=== PATIENT | female | born 1965 | race Caucasian/White ===

== ENCOUNTER 2020-06-30 12:48 | Outpatient (CLI) | payer BC, SELFPAY ==
[2020-07-03 15:30] LABS: Quantiferon Mitogen >10.00 IU/mL; Quantiferon Nil 0.05 IU/mL; Quantiferon Plus TB1 0.02 IU/mL; Quantiferon Plus TB2 0.04 IU/mL; Quantiferon TB Gold NEGATIVE (NEGATIVE)
== END 2020-06-30 12:49 | disposition home or self-care (01) ==
LOC: LAB 12:59
PROVIDERS: PCP Internal Medicine; Visit Provider Internal Medicine
DX: L40.50 Arthropathic psoriasis, unspecified (principal); Z79.899 Other long term (current) drug therapy
CPT/HCPCS: 36415; 86480

== ENCOUNTER 2020-12-19 13:35 | Outpatient (CLI) | payer OTHER, SELFPAY ==
--- NOTE | 2020-12-19 13:46 | MM_ITS ---
WS: [id number] SCREENING DIGITAL MAMMOGRAM WITH CAD HISTORY: SCREENING COMPARISON: 09/14/2019, 03/15/2019, 02/17/2019 and 02/06/2018 Bilateral CC and MLO views submitted. Computer aided detection analyzed. Breast composition: There are scattered areas of fibroglandular density. There are 2 nodules within t he LEFT breast which need further evaluation. Prior ultrasound from 03/15/2019 is reviewed from [facility] which had recommended follow-up 6 month evaluation. 9 mm mass near 2:00 at a middle depth. There is an additional asymmetry measuring 7 mm medial to the LEFT nipple on the CC projection. MM/[place] [id number] IMPRESSION: BI-RADS: 0-Incomplete: Need additional imaging evaluation FOLLOW UP: Need Additional Imaging LEFT breast: Spot compression views (CC and MLO). True ML. Ultrasound to follow if abnormality persists.
== END 2020-12-19 13:36 | disposition home or self-care (01) ==
LOC: RADSHAW 13:41
PROVIDERS: PCP Internal Medicine; Visit Provider Nurse Practitioner Family
DX: Z12.31 Encounter for screening mammogram for malignant neoplasm of breast (principal)
CPT/HCPCS: 77067

== ENCOUNTER 2021-01-05 08:27 | Outpatient (CLI) | payer OTHER, SELFPAY ==
--- NOTE | 2021-01-05 08:31 | US_ITS ---
WS: [id number] ADDITIONAL VIEWS LEFT MAMMOGRAM LEFT BREAST ULTRASOUND HISTORY: LT ABNORMAL MAMMOGRAM COMPARISON: 12/19/2020, 09/14/2019, 02/06/2018, 03/27/2015 and 09/26/2010 LEFT MAMMOGRAM: Spot compression views and true ML. Slightly lobulated mass in the middle upper outer quadrant of the LEFT breast near 2:00 persists. Thi s is of slightly increased density. This mass has been described on prior studies but is slowly incre asing in size. There is an additional asymmetry more anterior which is stable. Just medial to the nip ple is an additional asymmetry which may be normal fibroglandular density. LEFT BREAST ULTRASOUND 2-D and color Doppler imaging submitted. Ultrasound at 2:00, 1 cm from the nipple demonstrates a hypoechoic nodule measuring 9 x 6 x 9 mm. Thi s may represent the mammographic nodule. The mammographic nodule is slightly more rounded. There is a n additional hypoechoic area at 10:00, 1 cm from the nipple measuring 6 x 3 x 5 mm. This may be a com plex cyst. US/US breast LT limited* [id number] IMPRESSION: BI-RADS: 4-Suspicious Finding-Biopsy Should Be Considered FOLLOW UP: Biopsy Recommended Ultrasound-guided biopsy recommended of the slowly increasing LEFT breast mass at 2:00. If this mass cannot be correlated by ultrasound as the same mass by ma mmography stereotactic biopsy should then be performed. Additional 6 month diagnostic mammogram of the LEFT breast should then be perfo rmed as there are some additional asymmetries which are probably normal fibrogl andular asymmetries.
== END 2021-01-05 08:28 | disposition home or self-care (01) ==
LOC: RADSHAW 08:29
PROVIDERS: PCP Internal Medicine; Visit Provider Nurse Practitioner Family
DX: R92.8 Other abnormal and inconclusive findings on diagnostic imaging of breast (principal); N63.21 Unspecified lump in the left breast, upper outer quadrant
CPT/HCPCS: 76642; 77065

== ENCOUNTER 2021-01-30 12:09 | Outpatient (CLI) | payer OTHER, SELFPAY ==
--- NOTE | 2021-01-30 12:15 | US_ITS ---
WS: [id number] ULTRASOUND LEFT BREAST HISTORY: LEFT ABNORMAL MAMMOGRAM COMPARISON: 01/05/2021 and 03/15/2019 TECHNIQUE: 2-D and Doppler. Patient presents for LEFT breast biopsy of the complex cystic nodule at 2:00. On the ultrasound evalu ation this nodule appears more cystic than on prior studies. There are numerous additional similar cy stic nodules with septations or cluster of cysts within the LEFT breast. Additional cyst at 4:00. Due to the multiplicity and the very benign appearance no biopsy will be performed today. Discussed with patient the option of biopsy versus following up in 6 months and she is elected to fol low up in 6 months by ultrasound. US/US breast LT limited* [id number] IMPRESSION: BI-RADS: 3-Probably Benign FOLLOW-UP: 6 Month Follow-up Recommend follow-up ultrasound in 6 months of the LEFT breast to reevaluate the cystic masses at 2:00 and 4:00. These lesions appeared very benign on today's ultrasound evaluation therefore biopsy was not performed.
== END 2021-01-30 12:10 | disposition home or self-care (01) ==
PROVIDERS: PCP Internal Medicine; Visit Provider Nurse Practitioner Family
DX: R92.8 Other abnormal and inconclusive findings on diagnostic imaging of breast (principal); N63.21 Unspecified lump in the left breast, upper outer quadrant
CPT/HCPCS: 76642

== ENCOUNTER → 2021-03-22 15:11 | Outpatient (BNVA) | payer OTHER, SELFPAY | PROVIDERS: PCP Internal Medicine; Visit Provider Surgery | DX: Z20.822 Contact with and (suspected) exposure to COVID-19 (principal); Z12.11 Encounter for screening for malignant neoplasm of colon | CPT/HCPCS: 87635 ==

== ENCOUNTER 2021-03-27 06:50 | Day surgery (SDC) | payer OTHER, SELFPAY ==
[2021-03-26 13:55] VITALS: BMI 29.7
[2021-03-27 07:10] VITALS: BP 127/97; PULSE 85; RESP 16; TEMP 36.6; O2SAT 97
[2021-03-27] MEDS: sodium chloride 0.9% 1,000 ML 30 ML IV (07:17)
--- NOTE | 2021-03-27 07:42 | ANES.PREANE2 ---
Pre-Anesthetic Assessment Pre-Anesthetic Assessment: Height/Weight: Height 1.68 m Weight 83.461 kg Temp Pulse Resp BP Pulse Ox 97.9 F 85 16 127/97 97 03/27/21 07:10 03/27/21 07:10 03/27/21 07:10 03/27/21 07:10 03/27/21 07:10 Preop Diagnosis: Screening colonoscopy Proposed Procedure: Operation Date: 03/27/21 07:30 Proposed Procedures p Colonoscopy 22656 Z12.11(Not Applicable) - Juan Miguel Hill MD Was Beta Mya taken within 24 hours: N/A Was Clonidine taken within 24 hours: N/A Last intake: Intake Last Liquid Date 03/26/21 Last Liquid Time 22:00 Last Solid Date 03/25/21 Last Intake: 22:00 Social: Social History: No alcohol and No tobacco Exam: Pre-Anes Outpt Exam: alert, oriented x 3, clear to auscultation bilaterally and regular rate & rhythm Airway: Submandibular: WNL Cervical ROM: WNL MP: 2 Dentition: Full Pulmonary: Pulmonary: None reported CV/HEM: CV/HEM: HTN : : None reported Hepatic: Hepatic: None reported GI: GI: GERD Musc/skel: Musc/skel: Fibromyalgia, Lower Back Pain, OA/DJD, RA and Weakness (r side weakness and sensation) Neuropsych: Neuropsych: Anxiety, Depression and None reported Anesthetic Plan: ASA status: 2 Anesthesia: MAC Risk of > 500 ml blood loss (7ml/kg in children): No Meds/Allergies Current Medications: Current Medications Generic Name Dose Route Start Last Admin Trade Name Freq PRN Reason Stop Dose Admin Sodium Chloride 1,000 mls @ 30 ml s/hr 03/27/21 07:00 03/27/21 07:17 Sodium Chloride 0.9% IV 30 mls/hr .Q24H CHANG Administration Data Anesthesia Cardiac Studies: No Data to Display
--- NOTE | 2021-03-27 07:47 | P.HP_ITS ---
Same Day Surgery H&P Indication for Procedure/HPI DATE OF PROCEDURE: March 27, 2021 CHIEF COMPLAINT/INDICATIONFOR SURGICAL PROCEDURE: Screening colonoscopy PREOP DIAGNOSIS: Screening colonoscopy PLANNED PROCEDRUE: Operation Date: 03/27/21 07:30 Proposed Procedures p Colonoscopy 62531 Z12.11(Not Applicable) - Juan Miguel Hill MD This is a pleasant 56 years old female patient never had a colonoscopy before and she reports that her father had colon cancer at age of 50. Also her brother had history of colon polyps. She denies bleeding per rectum or nonintentional weight loss. [place]. Patient reports history of chronic psoriasis associated with psoriatic arthritis. ROS All systems have been reviewed negative except as per the above Medications/Allergies* Home Medications Medication Instructions Recorded Confirmed Type CBD Oil 1 drp PO PRN 02/26/21 03/26/21 History clobetasol 0.05 % topical cream 1 applic TOPICAL DAILY 02/26/21 03/26/21 History cyclosporine 100 mg capsule 200 mg PO DAILY cap 02/26/21 03/26/21 History duloxetine 60 mg capsule,delayed 60 mg PO DAILY 02/26/21 03/26/21 History release lisinopril 20 mg tablet 20 mg PO DAILY 02/26/21 03/26/21 History meloxicam 15 mg tablet 15 mg PO DAILY 02/26/21 03/26/21 History neomycin 3.5 mg/g-polymyxin B 1 applic OPHTHALMIC (EYE) QID 02/26/21 03/26/21 History 10,000 unit/g-dexameth 0.1 % eye oint omeprazole 20 mg capsule,delayed 20 mg PO DAILY 02/26/21 03/26/21 History release triamcinolone acetonide 0.025 % 1 applic TOPICAL DAILY 02/26/21 03/26/21 History topical cream Allergies/Adverse Reactions Allergy/AdvReac Type Severity Reaction Status Date / Time azithromycin Allergy Unknown Verified 03/27/21 07:48 cephalexin Allergy Unknown Verified 03/27/21 07:48 gabapentin Allergy Unknown Verified 03/27/21 07:48 Penicillins Allergy Unknown Verified 03/27/21 07:48 Current Medications: Generic Name Dose Route Start Last Admin Trade Name Freq PRN Reason Stop Dose Admin Sodium Chloride 1,000 mls @ 30 mls/hr 03/27/21 07:00 03/27/21 07:17 Sodium Chloride 0.9% IV 30 mls/hr .Q24H CHANG Administration Pertinent Exam Findings alert, oriented x 3, clear to auscultation bilaterally, regular rate & rhythm and procedure specific exam findings (Abdominal examination nontender nondistended soft) Recommendations Surgery/Procedure today (Colonoscopy possible biopsy and possible polypectomy) Other Plans: Plan of care; After thorough history and physical examination and reviewing the chart, plan to perform screening colonoscopy. I discussed with the patient in details the risks,benefits,alternatives and indications.The risk of aspiration, bleeding, soft tissue injury, perforation of the colon and other potential concomitant complications were explained to the patient in details,also the potential need for Laproscoy/Laparotomy to repair any related complications including but not limited to colectomy and or Closotomy.The patient understood this well and did agree to proceed. Rationale was carefully and clearly discussed with the patient.Appropriate informed consent have been reviewed and signed All questions have been answered and all concerns have been addressed to patient's satisfaction. Verbal and written Instructions were given to the patient for colonoscopy prep Coding Level of Care Code Acute Cloth Laminating Supervisor for Marcus Barraza
[2021-03-27 08:10] VITALS: BP 117/74; PULSE 75; RESP 18; TEMP 36.1; O2SAT 97
--- NOTE | 2021-03-27 08:13 | ANE.PACU2 ---
Inpatient post-anesthesia follow up: Airway intact: Yes Vital signs: Temperature 97.9 F Pulse Rate 85 Respiratory Rate 16 Blood Pressure 127/97 Pulse Oximetry 97 Oxygen Delivery Me thod Room Air Oxygen Flow Rate Fraction of Inspir ed Oxygen Hydration adequate: Yes Nausea and vomiting: No Pain level: 1 Mental status: Baseline
[2021-03-27 08:34] VITALS: BP 126/88; PULSE 71; RESP 18; O2SAT 97
--- NOTE | 2021-03-27 14:14 | ANE.PACU2 ---
Inpatient post-anesthesia follow up: Airway intact: Yes Vital signs: Temperature 97 F Pulse Rate 71 Respiratory Rate 18 Blood Pressure 126/88 Pulse Oximetry 97 Oxygen Delivery Me thod Room Air Oxygen Flow Rate Fraction of Inspir ed Oxygen Hydration adequate: Yes Nausea and vomiting: No Pain level: 1 Mental status: Baseline
== END 2021-03-27 08:50 | disposition home or self-care (01) ==
PROVIDERS: PCP Internal Medicine; Visit Provider Surgery
PROC: 0DJD8ZZ Inspection of Lower Intestinal Tract, Via Natural or Artificial Opening Endoscopic (ICD-10-PCS; CPT 45378; principal; 2021-03-27 07:30)
DX: Z12.11 Encounter for screening for malignant neoplasm of colon (principal); Z80.0 Family history of malignant neoplasm of digestive organs; I10 Essential (primary) hypertension; K21.9 Gastro-esophageal reflux disease without esophagitis; M79.7 Fibromyalgia; M19.90 Unspecified osteoarthritis, unspecified site
CPT/HCPCS: 45378; 96360; J2704; J7030

== ENCOUNTER 2021-09-10 15:06 | Outpatient (CLI) | payer OTHER, SELFPAY ==
--- NOTE | 2021-09-10 15:14 | USCV_ITS ---
Danielle Stack Age: 56 Gender: F : 1965 Exam Date: 09/10/2021 15:46 Ordering Phys: Erik Marks MD ([email or web address]) Technologist: Radha Conteh [place] [facility] [place]: SOB BP: 128 / 80 HR: 92 Rhythm: Sinus Technical Quality: Adequate MEASUREMENTS (Male / Female) Normal Values 2D ECHO LV Diastolic Diameter PLAX 2.6 cm 4.2 - 5.9 / 3.9 - 5.3 cm LV Systolic Diameter PLAX 1.3 cm IVS Diastolic Thickness 1.6 cm 0.6 - 1.0 / 0.6 - 0.9 cm IVS Systolic Thickness 1.4 cm LVPW Diastolic Thickness 1.5 cm 0.6 - 1.0 / 0.6 - 0.9 cm LVPW Systolic Thickness 2.1 cm LVOT Diameter 2.0 cm LV Ejection Fraction 2D Teich 84.4 % LV Ejection Fraction MOD 2C 61.0 % LV Ejection Fraction 2C AL 61.6 % LA Diameter 2.5 cm LA Width 2.4 cm LA Height 4.7 cm RA Width 3.1 cm RA Height 3.5 cm DOPPLER AV Peak Velocity 106.0 cm/s LVOT Peak Velocity 109.0 cm/s AV Area Cont Eq vti 3.8 cm squared AV Area Cont Eq pk 3.2 cm squared MV Peak Velocity 105.0 cm/s MV Area PHT 4.8 cm squared Mitral E to A Ratio 0.6 MV E' Velocity 35.0 cm/s Mitral E to MV E' Ratio 9.4 Mitral E to LV E' Lateral Ratio 7.2 Mitral E to LV E' Septal Ratio 13.9 TR Peak Velocity 92.0 cm/s TR Peak Gradient 3.4 mmHg Right Atrial Pressure 3.0 mmHg Pulmonary Artery Systolic Pressu 6.4 mmHg PV Peak Velocity 67.0 cm/s RV Acceleration Time 0.1 s RV Ejection Time 0.3 s RV AcT/ET 0.3 FINDINGS Left Ventricle Normal left ventricular cavity size. Normal left ventricular systolic function. No regional wall motion abnormalities. Left ventricular ejection fraction is estimated at 60 %. Grade I/IV diastolic dysfunction (abnormal relaxation filling pattern), normal to mildly elevated filling pressures. Right Ventricle The right ventricle is normal in size and function. Right Atrium The right atrium is normal in size. Left Atrium The left atrium is normal in size. Mitral Valve Structurally normal mitral valve without significant stenosis or prolapse. There is no mitral regurgitation. Aortic Valve Structurally normal aortic valve without significant sclerosis or stenosis. There is no aortic regurgitation. Tricuspid Valve Structurally normal tricuspid valve without significant stenosis or regurgitation. Pulmonary artery systolic pressure is normal. Pulmonic Valve Structurally normal pulmonic valve without significant stenosis. There is no pulmonic regurgitation. Pericardium Normal pericardium without effusion. Aorta Normal ascending aorta dimension. CONCLUSIONS 1-Normal left ventricular cavity size. Normal left ventricular systolic function. No regional wall motion abnormalities. Left ventricular ejection fraction is estimated at 60 %. Grade I/IV diastolic dysfunction (abnormal relaxation filling pattern), normal to mildly elevated filling pressures. 2-There is no pericardial effusion. 3-No significant valve abnormalities. 4-Pulmonary artery systolic pressure is within normal limits. 5-Right atrial pressure is around 5 mm of mercury. 6-There are no prior echocardiogram studies to compare. Erik Marks MD (Electronically Signed) Final Date: 17 September 2021 21:10 S
== END 2021-09-10 15:07 | disposition home or self-care (01) ==
LOC: RAD 15:09
PROVIDERS: PCP Internal Medicine; Visit Provider Internal Medicine Cardiovascular Disease
DX: I51.9 Heart disease, unspecified (principal); R06.02 Shortness of breath; R07.9 Chest pain, unspecified
CPT/HCPCS: 93306

== ENCOUNTER 2021-09-10 15:36 | Outpatient (CLI) | payer OTHER, SELFPAY ==
--- NOTE | 2021-09-10 15:43 | US_ITS ---
WS: [id number] ULTRASOUND LEFT BREAST HISTORY: CYSTIC MASS AT 2 AND 4 COMPARISON: 01/30/2021 TECHNIQUE: 2-D and Doppler. Simple cyst previously described at 2:00 is no longer apparent. Small cluster of cysts at 4:00 at the areolar measures 5 x 4 mm. Very similar in appearance to the prior study. No solid components. US/US breast LT complete [id number] IMPRESSION: BI-RADS: 2-Benign FOLLOW-UP: 6 Month Follow-up In 6 months patient should return to annual screening mammography in December 20. No solid mass is identified.
== END 2021-09-10 15:37 | disposition home or self-care (01) ==
LOC: RAD 15:37
PROVIDERS: PCP Internal Medicine; Visit Provider Internal Medicine
DX: R92.8 Other abnormal and inconclusive findings on diagnostic imaging of breast (principal); N63.21 Unspecified lump in the left breast, upper outer quadrant
CPT/HCPCS: 76641

== ENCOUNTER 2021-11-15 07:30 | Outpatient (CLI) | payer OTHER, SELFPAY ==
[2021-11-15 07:25] VITALS: BMI 30.2
--- NOTE | 2021-11-15 08:45 | NMCV_ITS ---
NM zachary perf SPECT r/s* [id number] Danielle Stack Age: 56 Gender: F : 1965 Exam Date: 11/15/2021 08:45 Ordering Phys: Erik Marks MD ([email or web address]) Technologist: MAURICIO Baptiste Exam [facility]: [facility] Indications: CHEST PAIN STRESS TEST Please see separate stress test report in [facility] for full findings IMAGE PROTOCOL Rest/Stress 1 Exercise Day Radiopharmaceutical Dose (mCi) Administration Site Administered by Rest: Tc-99m 10.6 IV MAURICIO Shelton Sestamibi Stress:Tc-99m 32.5 IV MAURICIO Shelton Sestamibi Rest: 15-Nov-2021 60 Discovery 630 Stress: 15-Nov-2021 15 Discovery 630 Radiopharmaceutical was injected at 87 % maximum heart rate. Images obtained in supine and prone position. SPECT RESULTS Technical Quality: Excellent Raw Data Analysis: Normal Image Corrections: No attenuation or motion correction applied Summed Stress Score: 4 Summed Rest Score: 5 Summed Difference Score: 0 PERFUSION FINDINGS Small area of fixed perfusion defect noted in distal septal and apical wall suggestive of old myocardial infarction versus scarring. No ischemia noted. FUNCTIONAL RESULTS (calculated via Gated SPECT) Stress Image LV EF (%): 75 Stress EDV (mL):79 TID: 0.77 Stress ESV (mL):20 Rest Image LV EF (%): 75 FUNCTIONAL FINDINGS: There is normal left ventricular systolic function. IMPRESSIONS This study is negative for ischemia. EKG segment will document separately. Erik Marks MD (Electronically Signed) Final Date: 15 November 2021 19:33 S
--- NOTE | 2021-11-15 08:45 | ECG_ITS ---
[facility] Test Date: 2021-11-15 Pat Name: Danielle Stack Department: Room: Gender: Female Tester [employer]ak[employer]: Eileen Peterson : 1965 Requested By: Erik Marks Order Number: [id number] Reading MD: ERIK MARKS Interpretive Statements NAME OF STUDY: LEXISCAN SESTAMIBI STRESS TEST INDICATION: Chest Pain, NOTE: Please note that this is the electrocardiogram portion of the Lexiscan/Sestamibi stress test. The perfusion scan will be documented separately. DATA: Baseline heart rate was 76 beats per minute. Baseline blood pressure was 153/90 millimeters of mercury. Target heart rate was 162. Maximum heart rate achieved was 144. which was 88 % of the predicted target heart rate. Maximum blood pressure was 216/93 millimeters of mercury. The reason for ending the test was completion of the protocol. The patient did not experience any symptoms. ELECTROCARDIOGRAM: BASELINE: Sinus rhythm. Normal axis. Left bundle branch block EXERCISE: After Lexiscan injection, no ST-T changes suggestive of ischemic noted. No arrhythmia noted. CONCLUSION: Please note due to baseline abnormality of the EKG specificity and sensitivity of the EKG portion of LexiScan MIBI stress test will be low 1. EKG not suggestive of ischemia 2. Lexiscan injection unremarkable. Blood pressure response was hypertensive. 3. Perfusion scan will be documented separately. Electronically Signed On 11-20-2021 21:52:48 SCIENCE WRITER by ERIK MARKS [email or web address]
[2021-11-15 10:02] VITALS: BP 158/88; PULSE 88
== END 2021-11-15 07:31 | disposition home or self-care (01) ==
LOC: CDL 07:31
PROVIDERS: PCP Internal Medicine; Visit Provider Internal Medicine Cardiovascular Disease
DX: R07.9 Chest pain, unspecified (principal); R06.02 Shortness of breath
CPT/HCPCS: 78452; 93017; A9500

== ENCOUNTER → 2022-06-14 09:12 | Outpatient (BNVA) | payer MEDICARE, SELFPAY | PROVIDERS: PCP Family Medicine; Visit Provider Internal Medicine | DX: L40.50 Arthropathic psoriasis, unspecified (principal); Z79.899 Other long term (current) drug therapy; Z11.59 Encounter for screening for other viral diseases; Z11.1 Encounter for screening for respiratory tuberculosis | CPT/HCPCS: 36415; 80053; 81003; 82784; 83516; 84443; 85025; 85651; 86140; 86160; 86162; 86235; 86255; 86376; 86480; 86704; 86803; 87340; 99214 ==

== ENCOUNTER 2022-06-17 14:14 | Outpatient (CLI) | payer MEDICARE, SELFPAY ==
--- NOTE | 2022-06-17 14:24 | MM_ITS ---
WS: [id number] BILATERAL 3D TOMOSYNTHESIS DIGITAL SCREENING MAMMOGRAPHY WITH CAD CLINICAL INFORMATION: SCREENING HISTORY: Screening mammogram. Bilateral breast soreness. Nipple discharge. COMPARISON: December 19, 2020, and January 05, 2021. Multiple prior ultrasounds dating back to 2020 TECHNIQUE: Bilateral CC and MLO views. FINDINGS: Scattered fibroglandular densities bilaterally. Stable or improved asymmetric densities LEFT breast p reviously demonstrated to represent benign cysts on ultrasound. No suspicious focal mass, asymmetry, calcifications, or architectural distortion. No evidence of malignancy. MM/[place] [id number] IMPRESSION: BI-RADS: 2-Benign FOLLOW UP: 1 Year Follow-up Recommend return to annual screening mammography.
== END 2022-06-17 14:15 | disposition home or self-care (01) ==
PROVIDERS: PCP Family Medicine; Visit Provider Family Medicine
DX: Z12.31 Encounter for screening mammogram for malignant neoplasm of breast (principal)
CPT/HCPCS: 77063; 77067

== ENCOUNTER → 2022-07-04 14:07 | Outpatient (BNVA) | payer MEDICARE, SELFPAY | PROVIDERS: PCP Family Medicine; Visit Provider Internal Medicine | DX: L40.50 Arthropathic psoriasis, unspecified (principal); K90.0 Celiac disease; R21 Rash and other nonspecific skin eruption | CPT/HCPCS: 99214 ==

== ENCOUNTER → 2022-09-02 14:49 | Outpatient (BNVA) | payer MEDICARE, SELFPAY | PROVIDERS: PCP Family Medicine; Visit Provider Internal Medicine Cardiovascular Disease | DX: R07.9 Chest pain, unspecified (principal); R06.02 Shortness of breath; I10 Essential (primary) hypertension | CPT/HCPCS: 99214 ==

== ENCOUNTER 2022-10-01 16:02 | Outpatient (CLI) | payer MEDICARE, SELFPAY | END 2022-10-01 16:03 | disposition home or self-care (01) | LOC: LAB 16:07 | PROVIDERS: PCP Family Medicine; Visit Provider Internal Medicine | DX: L40.50 Arthropathic psoriasis, unspecified (principal); Z79.899 Other long term (current) drug therapy; K90.0 Celiac disease | CPT/HCPCS: 80053; 85025; 85651; 86140; 99214 ==

== ENCOUNTER → 2022-12-24 09:45 | Outpatient (BNVA) | payer MEDICARE, SELFPAY | PROVIDERS: Visit Provider Internal Medicine | DX: L40.50 Arthropathic psoriasis, unspecified (principal); K90.0 Celiac disease; Z79.899 Other long term (current) drug therapy; M54.2 Cervicalgia | CPT/HCPCS: 36415; 80053; 85025; 85651; 86140; 99214 ==

== ENCOUNTER → 2023-03-10 14:47 | Outpatient (BNVA) | payer MEDICARE, SELFPAY | PROVIDERS: PCP Family Medicine; Visit Provider Internal Medicine | DX: L40.50 Arthropathic psoriasis, unspecified (principal); K90.0 Celiac disease; M54.2 Cervicalgia; Z79.899 Other long term (current) drug therapy; K86.81 Exocrine pancreatic insufficiency | CPT/HCPCS: 36415; 80053; 83735; 84100; 84439; 84443; 84550; 85025; 85652; 86140; 99214 ==

== ENCOUNTER → 2023-05-21 11:13 | Outpatient (BNVA) | payer MEDICARE, SELFPAY | PROVIDERS: PCP Family Medicine; Visit Provider Anesthesiology Pain Medicine | DX: M48.02 Spinal stenosis, cervical region (principal); M47.812 Spondylosis without myelopathy or radiculopathy, cervical region; M54.50 Low back pain, unspecified; M79.604 Pain in right leg; M79.605 Pain in left leg; I77.9 Disorder of arteries and arterioles, unspecified | CPT/HCPCS: 72050; 99204 ==

== ENCOUNTER → 2023-07-10 14:35 | Outpatient (BNVA) | payer MEDICARE, SELFPAY | PROVIDERS: PCP Family Medicine; Visit Provider Internal Medicine | DX: K90.0 Celiac disease (principal); L40.50 Arthropathic psoriasis, unspecified; Z79.899 Other long term (current) drug therapy; M54.2 Cervicalgia | CPT/HCPCS: 36415; 80053; 84550; 85025; 85651; 86140; 99214 ==

== ENCOUNTER 2023-07-22 15:43 | Outpatient (CLI) | payer MEDICARE, SELFPAY ==
--- NOTE | 2023-07-22 15:51 | MR_ITS ---
WS: [id number] MRI CERVICAL SPINE NONCONTRAST HISTORY: I77.9 - Disorder of arteries and arterioles, unspecified, neck pain and RIGHT upper extremit y pain. COMPARISON: 12/21/2015 Technique: Multiplanar, multisequence noncontrast imaging of the cervical spine. Very slight straightening of the normal cervical lordosis. No fractures or marrow edema. Signal within the cervical cord is normal. Visualized posterior fossa is unremarkable. Craniocervical junction, C1 and C2 relationship, odontoid process and soft tissues are normal. C2-C3: Normal. C3-C4: LEFT foraminal osteophyte with displacement of the exiting nerve root. Mild LEFT foraminal letty nosis. Similar to the prior study. C4-C5: Diffuse osteophytic ridging and asymmetric disc bulging. Disc and osteophyte and facet disease are contributing to the moderate central and moderate to severe LEFT foraminal stenosis. Mild RIGHT foraminal stenosis. Progression of stenoses and osteophytosis since the prior study. C5-C6: Diffuse marked annular disc bulging and osteophytic ridging with mild bilateral facet arthriti s. Significant progression of stenoses. Complete effacement of CSF with progression up cervical defor mity. Severe central and bilateral foraminal stenoses. Moderate facet arthritis, greatest on the RIGH T. C6-C7: Mild annular disc bulging with a disc osteophyte complex on the RIGHT. Posterior displacement of the exiting nerve roots. Mild central with moderate RIGHT foraminal stenosis. Mild progression sin ce the prior study. C7-T1: Normal. Paraspinal soft tissue are normal. IMPRESSION: 1. Progression of degenerative disease and stenosis throughout the cervical spine since 2016. 2. C3-4: LEFT foraminal osteophyte causing mild foraminal stenosis. 3. C4-5: Moderate central with moderate to severe LEFT foraminal stenosis which has progressed since the prior study. 4. C5-6: Severe central and bilateral foraminal stenosis with bilateral facet joint arthritis. Progre ssion of stenoses since the prior study. 5. C6-7: Mild central with moderate RIGHT foraminal stenosis.
== END 2023-07-22 15:44 | disposition home or self-care (01) ==
PROVIDERS: PCP Family Medicine; Visit Provider Anesthesiology Pain Medicine
DX: I77.9 Disorder of arteries and arterioles, unspecified (principal); M48.02 Spinal stenosis, cervical region; M25.78 Osteophyte, vertebrae; M47.812 Spondylosis without myelopathy or radiculopathy, cervical region
CPT/HCPCS: 72141

== ENCOUNTER → 2023-12-09 15:20 | Outpatient (BNVA) | payer MEDICARE, SELFPAY | PROVIDERS: PCP Family Medicine; Visit Provider Internal Medicine | DX: M79.7 Fibromyalgia (principal); L40.50 Arthropathic psoriasis, unspecified; Z79.899 Other long term (current) drug therapy; M25.50 Pain in unspecified joint; M19.072 Primary osteoarthritis, left ankle and foot; M19.071 Primary osteoarthritis, right ankle and foot | CPT/HCPCS: 73620; 80053; 84439; 84550; 85025; 85651; 86140; 99214 ==

== ENCOUNTER 2023-12-12 13:22 | Outpatient (CLI) | payer MEDICARE, SELFPAY ==
--- NOTE | 2023-12-12 13:27 | MM_ITS ---
WS: [id number] BILATERAL 3D TOMOSYNTHESIS DIGITAL SCREENING MAMMOGRAPHY WITH CAD CLINICAL INFORMATION: SCREENING HISTORY: Screening mammogram. No current complaints. COMPARISON: 2021 TECHNIQUE: Bilateral CC and MLO views. FINDINGS: Scattered fibroglandular densities bilaterally. Nodular densities LEFT anterior breast unchanged and previously evaluated. No suspicious focal mass, asymmetry, calcifications, or architectural distortio n. No evidence of malignancy. IMPRESSION: MM/[place] [id number] BI-RADS: 2-Benign FOLLOW UP: 1 Year Follow-up Recommend return to annual screening mammography.
== END 2023-12-12 13:23 | disposition home or self-care (01) ==
LOC: RAD 13:23
PROVIDERS: PCP Family Medicine; Visit Provider Family Medicine
DX: Z12.31 Encounter for screening mammogram for malignant neoplasm of breast (principal); R92.323 Mammographic fibroglandular density, bilateral breasts
CPT/HCPCS: 77063; 77067

== ENCOUNTER → 2023-12-23 11:43 | Outpatient (BNVA) | payer MEDICARE, SELFPAY | PROVIDERS: PCP Family Medicine; Visit Provider Podiatrist Foot & Ankle Surgery | DX: M67.873 Other specified disorders of tendon, right ankle and foot; M67.874 Other specified disorders of tendon, left ankle and foot; L40.50 Arthropathic psoriasis, unspecified | CPT/HCPCS: 73630; 99203 ==

== ENCOUNTER → 2023-12-25 11:06 | Outpatient (BNVA) | payer MEDICARE, SELFPAY | PROVIDERS: PCP Family Medicine; Visit Provider Anesthesiology Pain Medicine | DX: M54.9 Dorsalgia, unspecified (principal); M48.02 Spinal stenosis, cervical region; M47.812 Spondylosis without myelopathy or radiculopathy, cervical region | CPT/HCPCS: 99214 ==

== ENCOUNTER → 2024-06-22 11:15 | Outpatient (BNVA) | payer MEDICARE, SELFPAY | PROVIDERS: PCP Family Medicine; Visit Provider Podiatrist Foot & Ankle Surgery | DX: M67.873 Other specified disorders of tendon, right ankle and foot; M67.874 Other specified disorders of tendon, left ankle and foot; L40.50 Arthropathic psoriasis, unspecified | CPT/HCPCS: 99213 ==

== ENCOUNTER 2025-04-19 11:50 | Outpatient (CLI) | payer MEDICARE, SELFPAY ==
--- NOTE | 2025-04-19 12:01 | MR_ITS ---
WS: [id number] MRI CERVICAL SPINE NONCONTRAST HISTORY: CERVICALGIA/RADICULOPATHY,CERVICAL REGION COMPARISON: 07/22/2023 Technique: Multiplanar, multisequence noncontrast imaging of the cervical spine. Straightening and slight reversal the normal cervical lordosis. 4 mm retrolisthesis of C5. 3 mm retrolisthesis of C4. T1 anterolisthesis by 2 mm. Vertebral body osteophytes encroach upon the ventral thecal sac. No cord atrophy or myelomalacia. Signal within the cervical cord is normal. Visualized posterior fossa is unremarkable. Craniocervical junction, C1 and C2 relationship, odontoid process and soft tissues are normal. C2-C3: Normal. C3-C4: Asymmetric disc bulging to the LEFT. Mild disc bulging. LEFT foraminal osteophyte is reidentified resulting in moderate foraminal stenosis. There is also a small amount of edema in the LEFT facet. C4-C5: Diffuse asymmetric disc bulging. Large disc osteophyte extends from the LEFT paracentral region into the LEFT foramen along with facet joint arthropathy. There is effacement and deformity of the LEFT lateral cervical cord. Bilateral facet joint arthropathy, LEFT greater than RIGHT. Moderate cent ral with moderate to severe LEFT foraminal stenosis with mild progression since the prior study. C5-C6: Diffuse annular disc bulging with osteophytic ridging and bilateral facet joint arthropathy. Moderate-sized bilateral disc osteophyte complexes encroach upon the thecal sac extending into the foramina along with facet joint arthropathy. Severe central and bilateral foraminal stenosis. C6-C7: Diffuse annular disc bulging with osteophytic ridging. Asymmetric disc osteophyte disease on the RIGHT. Moderate central and LEFT foraminal stenosis. Severe RIGHT foraminal stenosis due to disc osteophyte complex. C7-T1: No stenosis. T1-2 and T2-3: Small central disc protrusions. No stenosis. There is a small amount of marrow edema which is new in the LEFT C7 and T1 facets. MR/MR cervical spin wo con* [id number] IMPRESSION: 1. Progression of degenerative disease disc, facet disease and stenosis since 07/22/2023. 2. Moderate LEFT foraminal stenosis at C3-4 due to osteophyte disease. 3. C4-5: Moderate central with moderate to severe LEFT foraminal stenosis whic h has progressed since the prior study. 4. C5-6: Severe central and bilateral foraminal stenosis due to disc osteophyt e complexes. 5. C6-7: Severe RIGHT foraminal stenosis with moderate central LEFT foraminal stenosis from disc osteophyte disease. 6. New marrow edema and synovitis noted on the LEFT at C7 and T1. 7. No cord myelomalacia identified but there is disc osteophyte contact on the ventral cord most significant at C5-6 and C4-5 placing patient at risk for mye lomalacia and cord edema.
== END 2025-04-19 11:51 | disposition home or self-care (01) ==
PROVIDERS: PCP Family Medicine; Visit Provider Physical Medicine & Rehabilitation
DX: M48.02 Spinal stenosis, cervical region (principal); M54.12 Radiculopathy, cervical region; M25.78 Osteophyte, vertebrae; R60.0 Localized edema; M65.88 Other synovitis and tenosynovitis, other site; R93.7 Abnormal findings on diagnostic imaging of other parts of musculoskeletal system; M43.12 Spondylolisthesis, cervical region; M43.14 Spondylolisthesis, thoracic region; M50.31 Other cervical disc degeneration, high cervical region; M50.321 Other cervical disc degeneration at C4-C5 level; M47.892 Other spondylosis, cervical region; M50.322 Other cervical disc degeneration at C5-C6 level; M50.323 Other cervical disc degeneration at C6-C7 level; M51.24 Other intervertebral disc displacement, thoracic region
CPT/HCPCS: 72141

== ENCOUNTER 2025-08-18 15:18 | Outpatient (CLI) | payer MEDICARE, SELFPAY ==
--- NOTE | 2025-08-18 15:20 | MM_ITS ---
WS: [id number] SCREENING DIGITAL BREAST TOMOSYNTHESIS MAMMOGRAM WITH CAD HISTORY: screening COMPARISON: 12/12/2023, 06/17/2022 Bilateral CC and MLO with tomosynthesis and synthetic mammography submitted. Computer aided detection analyzed. Breast composition: The breasts are heterogeneously dense, which may obscure small masses. New well-circumscribed mass measuring 4 x 4 x 5 mm in the anterior lateral LEFT breast near 2-3 o'clock. There are additional bilateral partially obscured masses within each breast which are stable. No suspicious grouping of calcification. MM/MM scr tomosynthesis [id number] IMPRESSION: BI-RADS: 0 - Incomplete: Need additional imaging evaluation FOLLOW UP: Need Additional Imaging Recommendation: LEFT breast ultrasound, limited.
== END 2025-08-18 15:19 | disposition home or self-care (01) ==
LOC: RAD 15:19
PROVIDERS: PCP Family Medicine; Visit Provider Family Medicine
DX: Z12.31 Encounter for screening mammogram for malignant neoplasm of breast (principal); R92.333 Mammographic heterogeneous density, bilateral breasts; N63.21 Unspecified lump in the left breast, upper outer quadrant
CPT/HCPCS: 77063; 77067

== ENCOUNTER 2025-09-06 11:39 | Outpatient (CLI) | payer MEDICARE, SELFPAY ==
--- NOTE | 2025-09-06 11:45 | US_ITS ---
WS: [id number] ULTRASOUND LEFT BREAST, limited HISTORY: abnormal screening; L breast lump COMPARISON: Mammogram 08/18/2025 TECHNIQUE: 2-D and Doppler. Ultrasound is directed to the upper outer quadrant of the LEFT breast. There is a small well-circumscribed cyst measuring 0.4 x 0.4 x 0.6 cm which corresponds to the mammographic abnormality. There is no increased vascularity. No additional mass or shadowing. US/US breast LT limited* [id number] IMPRESSION: BI-RADS: 2- Benign FOLLOW-UP: 1 Year Follow-up Return to annual screening mammography. Mammographic mass is a small cyst by edwige perla.
== END 2025-09-06 11:40 | disposition home or self-care (01) ==
LOC: RAD 11:40
PROVIDERS: PCP Family Medicine; Visit Provider Family Medicine
DX: R92.8 Other abnormal and inconclusive findings on diagnostic imaging of breast (principal); N63.21 Unspecified lump in the left breast, upper outer quadrant
CPT/HCPCS: 76642

== ENCOUNTER 2025-09-16 15:03 | Outpatient (CLI) | payer MEDICARE, SELFPAY ==
--- NOTE | 2025-09-16 15:10 | XR_ITS ---
WS: [id number] SCREENING DEXA SCAN [id number] CLINICAL INFORMATION: AGE RELATED BONE LOSS COMPARISON: None. FINDINGS: The L1-L4 bone mineral density measures 1.254 g/cm2. This corresponds to a T score score of 0.6 and Z score of 1.5. Left femoral neck bone mineral density measures 0.817 g/cm2. This corresponds to a T score of -1.5 and Z score of -0.8. Right femoral neck bone mineral density measures 0.860 g/cm2. This corresponds to a T score -1.2of and Z score of -0.5. Mean femoral neck bone mineral density measures 0.838 g/cm2. This corresponds to a T score of -1.3 and Z score of -0.7. XR/XR DEXA axial skeleton* [id number] IMPRESSION: Normal bone mineralization lumbar spine. Osteopenia femoral necks. Patient's FRAX calculated 10 year probability for major osteoporotic fracture i s 9.8% and osteoporotic hip fracture is 1.2%.
== END 2025-09-16 15:04 | disposition home or self-care (01) ==
LOC: RAD 15:05
PROVIDERS: PCP Family Medicine; Visit Provider Neurological Surgery
DX: Z13.820 Encounter for screening for osteoporosis (principal); M85.88 Other specified disorders of bone density and structure, other site; M85.89 Other specified disorders of bone density and structure, multiple sites
CPT/HCPCS: 77080

== ENCOUNTER → 2025-11-10 13:52 | Outpatient (BNVA) | payer MEDICARE, SELFPAY | PROVIDERS: PCP Family Medicine; Visit Provider Family Medicine | DX: R39.89 Other symptoms and signs involving the genitourinary system (principal) | CPT/HCPCS: 81000 ==